=== PATIENT | male | born 1970 | race Two or more races ===

== ENCOUNTER 2020-01-26 00:50 | Emergency (ER) | payer SELFPAY ==
[~2020-01-26] VITALS: Ht 170.2 cm; Wt 75.0 kg
[2020-01-26 03:31] VITALS: BP 136/71
== END 2020-01-26 03:59 | disposition home or self-care (01) ==
LOC: EMS 00:50
DX: R42 Dizziness and giddiness (principal); R06.02 Shortness of breath; R00.2 Palpitations
CPT/HCPCS: 93005